=== PATIENT | male | born 1995 | race American Indian/Alaskan Native ===

== ENCOUNTER 2022-02-09 15:39 | Emergency (ER) | payer SELFPAY ==
[2022-02-09] MEDS ORDERED: SODIUM CHLORIDE 0.9% 1000 ML 1,000 ML IV ONE ×2 (16:01→17:53)
[2022-02-09] MEDS ORDERED: ONDANSETRON 4 MG/2 ML INJ IV ONE (16:02)
--- NOTE | 2022-02-09 16:03 | Emergency Department Report ---
ED Shortness of Breath HPI - General Chief Complaint: Nausea/Vomiting/Diarrhea Stated Complaint: NAUSEA VOMITING S/P MARIJUANA USE Time Seen by Provider: 02/09/22 15:57 Source: EMS Mode of arrival: Stretcher Limitations: No Limitations - History of Present Illness Initial Comments: Chief complaint: "I could not breathe." HPI: 27-year-old male with history of asthma presents with shortness of breath sudden onset while at home. He admits to drinking alcohol and smoking marijuana today. No significant wheezing. No cough. MD Complaint: shortness of breath -: Sudden, This afternoon Severity: mild Consistency: now resolved Improves With: nothing Worsens With: nothing Known History Of: asthma Context: other (Marijuana alcohol use) Associated Symptoms: denies other symptoms - Related Data Previous Rx's Medication Instructions Recorded Last Taken Type Albuterol Mdi (or & Nicu Only) 2 puff IH QID PRN #1 device 02/09/22 Unknown Rx [ProAir HFA Inhaler] Doxycycline Hyclate [Doxycycline 100 mg PO Q12HR 7 Days #14 tab 02/09/22 Unknown Rx Hyclate TAB] Allergies Allergy/AdvReac Type Severity Reaction Status Date / Time No Known Allergies Allergy Unverified 02/09/22 15:41 ED Review of Systems ROS: Stated complaint: NAUSEA VOMITING S/P MARIJUANA USE Other details as noted in HPI Comment: All other systems reviewed and negative Constitutional: denies: fever, malaise Respiratory: shortness of breath. denies: cough, wheezing Cardiovascular: denies: chest pain Gastrointestinal: nausea, vomiting. denies: abdominal pain ED Past Medical Hx - Past Medical History Previous Medical History?: Yes Hx Asthma: Yes - Surgical History Past Surgical History?: No - Family History Family history: hypertension - Social History Smoking Status: Current Some Day Smoker Substance Use Type: Alcohol, Marijuana - Medications Home Medications: Home Medications Medication Instructions Recorded Confirmed Last Taken Type Albuterol Mdi (or & Nicu Only) 2 puff IH QID PRN #1 device 02/09/22 Unknown Rx [ProAir HFA Inhaler] Doxycycline Hyclate [Doxycycline 100 mg PO Q12HR 7 Days #14 tab 02/09/22 Unknown Rx Hyclate TAB] ED Physical Exam - General Limitations: No Limitations General appearance: alert, in no apparent distress, other (No respiratory distress, speaking full word sentences) - Head Head exam: Present: atraumatic, normocephalic - Eye Eye exam: Present: normal appearance - ENT ENT exam: Present: mucous membranes moist - Neck Neck exam: Present: normal inspection, full ROM - Respiratory Respiratory exam: Present: normal lung sounds bilaterally. Absent: respiratory distress, wheezes, rales, rhonchi - Cardiovascular Cardiovascular Exam: Present: normal rhythm, tachycardia, normal heart sounds. Absent: systolic murmur, diastolic murmur, rubs, gallop - GI/Abdominal GI/Abdominal exam: Present: soft, normal bowel sounds. Absent: distended, tenderness, guarding, rebound - Rectal Rectal exam: Present: deferred - Extremities Exam Extremities exam: Present: normal inspection - Neurological Exam Neurological exam: Present: alert, oriented X3 - Psychiatric Psychiatric exam: Present: normal affect, normal mood - Skin Skin exam: Present: warm, dry, intact, normal color. Absent: rash ED Course Vital Signs 02/09/22 15:41 Pulse Rate 141 H Respiratory 16 Rate Blood Pressure 148/84 [Left] O2 Sat by Pulse 99 Oximetry ED Medical Decision Making - Lab Data Result diagrams: 02/09/22 16:17 02/09/22 16:17 - Radiology Data Radiology results: report reviewed Patient Name: MILAGROS RODGERS Gender: Male Date of : 1995 Home Phone: Referring Provider: JASS BEARD Organization: [facility] Accession Number: [id number] Requested Date: February 09, 2022 16:01 Report Status: Final Requested Procedure: 1 Procedure Description: XR chest routine 2V Modality: XR Findings Reporting MD: Daniel Chao Dictation Time: February 09, 2022 16:25 Wax Blender: Not available Hydraulic Operator Date: CHEST 2 VIEWS INDICATION / CLINICAL INFORMATION: dyspnea STUDY TIME: 1702 COMPARISON: None available. FINDINGS: SUPPORT DEVICES: None. HEART / MEDIASTINUM: No significant abnormality. LUNGS / PLEURA: No significant acute pulmonary or pleural abnormality. No pneumothorax. ADDITIONAL FINDINGS: No significant additional findings. Signer Name: Daniel Chao MD Signed: 02/09/2022 4:25 PM Workstation Name: [id number] - Medical Decision Making 1. Acute bronchitis with normal D-dimer, no evidence of infiltrate or pneumonia or pneumothorax. 2. Tachycardia related to marijuana use and hypovolemia with alcohol imbibing. Patient received 2 L normal saline isotonic crystalloid. Prescribe doxycycline, albuterol. Critical care attestation.: If time is entered above; I have spent that time in minutes in the direct care of this critically ill patient, excluding procedure time. ED Disposition Clinical Impression: Acute bronchitis, Marijuana intoxication, Dehydration Disposition: 01 HOME / SELF CARE / HOMELESS Is pt being admited?: No Does the pt Need Aspirin: No Condition: Stable Instructions: Cannabis Use Disorder, Dehydration, Adult, [id number], Acute Bronchitis, Adult, [id number], Acute Bronchitis (ED) Prescriptions: Doxycycline Hyclate [Doxycycline Hyclate TAB] 100 mg PO Q12HR 7 Days #14 tab Albuterol Mdi (or & Nicu Only) [ProAir HFA Inhaler] 2 puff IH QID PRN #1 device PRN Reason: Shortness Of Breath Referrals: SANGEETHA BURGER MD [Staff Physician] - 3-5 Days
[2022-02-09 16:58] LABS: Basophils % (Auto) 0.2 % (0.0-1.8); Eosinophils % (Auto) 0.2 % (0.0-4.3); Hematocrit 40.5 % (35.5-45.6); Hemoglobin 13.3 gm/dl (11.8-15.2); Lymphocytes # (Auto) 2.5 K/mm3 (1.2-5.4); Lymphocytes % (Auto) 10.7 % (13.4-35.0); Mean Corpuscular HGB Conc 33 % (32-34); Mean Corpuscular Volume 89 fl (84-94); Monocytes # (Auto) 1.1 K/mm3 (0.0-0.8); Monocytes % (Auto) 4.8 % (0.0-7.3); Platelet Count 184 K/mm3 (140-440); Red Blood Count 4.55 M/mm3 (3.65-5.03); Red Cell Distribution Width 13.6 % (13.2-15.2)
[2022-02-09 17:10] LABS: BUN/Creatinine Ratio 14; Blood Urea Nitrogen 13 mg/dL (9-20); Calcium 9.5 mg/dL (8.4-10.2); Hemolysis Index 8
--- NOTE | 2022-02-09 17:30 | XRay Report ---
CHEST 2 VIEWS INDICATION / CLINICAL INFORMATION: dyspnea STUDY TIME: 1703 COMPARISON: None available. FINDINGS: SUPPORT DEVICES: None. HEART / MEDIASTINUM: No significant abnormality. LUNGS / PLEURA: No significant acute pulmonary or pleural abnormality. No pneumothorax. ADDITIONAL FINDINGS: No significant additional findings. Signer Name: Daniel Chao MD Signed: 02/09/2022 5:25 PM Workstation Name: [id number]
[2022-02-09] MEDS ORDERED: DOXYCYCLINE 100 MG CAP PO ONE (17:54)
[2022-02-09 19:47] VITALS: BP 116/72
== END 2022-02-09 19:45 | disposition home or self-care (01) ==
LOC: ED 15:39
DX: R19.7 Diarrhea, unspecified (principal); J02.9 Acute pharyngitis, unspecified; F19.129 Other psychoactive substance abuse with intoxication, unspecified; E86.0 Dehydration; J45.909 Unspecified asthma, uncomplicated; F17.200 Nicotine dependence, unspecified, uncomplicated
CPT/HCPCS: 36415; 71046; 80048; 85025; 85379; 96361; 96374; 99284; J2405; J7030; Q0162